=== PATIENT | male | born 1950 | race Caucasian/White ===

== ENCOUNTER 2022-06-23 06:16 | Inpatient (IN) ==
[2022-06-23] MEDS ORDERED: CeFAZolin Syr 3,000MG/30 ML 3,000 MG/30 ML SYRINGE IVPB ONE (06:35)
[2022-06-23] MEDS ORDERED: *HR* FentaNYL (PF) 100 MCG/2 ML VIAL ONE ×2 (06:42→16:21)
[2022-06-23] MEDS ORDERED: *HR* Propofol 200 MG/20 ML VIAL IVP ONE (06:43)
[2022-06-23] MEDS ORDERED: *HR* Succinylcholine 200 MG/10 ML VIAL IVP ONE ×2 (06:44→16:17)
[2022-06-23] MEDS ORDERED: Ondansetron 4 MG/2 ML VIAL ONE ×2 (06:44→16:36)
[2022-06-23] MEDS ORDERED: Lidocaine -MPF 2% 5 ML VIAL ONE ×2 (06:44→16:21)
[2022-06-23] MEDS ORDERED: Ringers Solution, Lactated 1,000 ML IVC SCH (06:45)
[2022-06-23] MEDS ORDERED: *HR* Phenylephrine 10 MG/ML VIAL ONE (06:50)
[2022-06-23] MEDS ORDERED: Protamine Sulfate 50 MG/5 ML VIAL IVP ONE (07:01)
[2022-06-23] MEDS ORDERED: Iopamidol - 300 50 ML VIAL ONE (07:02)
[2022-06-23] MEDS ORDERED: Heparin 1,000 UNITS/500 mL 2,000 ML ONE (07:02)
[2022-06-23] MEDS ORDERED: Iopamidol - 300 100 ML INFUS..BTL ONE (07:02)
[2022-06-23] MEDS ORDERED: Famotidine 20 MG/2 ML VIAL IVP ONE (07:14)
[2022-06-23] MEDS ORDERED: Acetaminophen IV 1,000 MG/100 ML BAG IVPB ONE (07:14)
[2022-06-23] MEDS ORDERED: Ketorolac 30 MG/ML VIAL IVP PRN (07:14)
[2022-06-23] MEDS ORDERED: *HR* OxyCODONE Immed Rel 5 MG TABLET PO PRN ×3 (07:14→19:09)
[2022-06-23] MEDS ORDERED: *HR* Labetalol 20 MG/4 ML SYRINGE IVP PRN ×3 (07:14→19:09)
[2022-06-23] MEDS ORDERED: *HR* HYDROmorphone 2 MG TABLET PO PRN (07:14)
[2022-06-23] MEDS ORDERED: *HR* HYDROmorphone (PF) 1 MG/ML SYRINGE IVP PRN (07:14)
[2022-06-23] MEDS ORDERED: Heparin 1,000 UNITS/500 mL 0 ML ONE (07:30)
[2022-06-23] MEDS ORDERED: ceFAZolin 1,000 MG, Sodium Chloride IRRigation 1,000 ML IR ONE (07:45)
[2022-06-23] MEDS ORDERED: EPHEDrine 50 MG/ML VIAL ONE ×3 (08:19→16:29)
[2022-06-23] MEDS ORDERED: *HR* Rocuronium Bromide 50 MG/5 ML VIAL ONE ×2 (09:12→16:17)
[2022-06-23] MEDS ORDERED: *HR* Heparin 5,000 UNIT/ML VIAL ONE ×2 (09:48→09:56)
[2022-06-23] MEDS ORDERED: Sugammadex Sodium 200 MG/2 ML VIAL IV ONE (10:51)
[2022-06-23] MEDS ORDERED: *HR* HYDROMORPHONE 2 MG/ML VIAL ONE (11:40)
[2022-06-23] MEDS ORDERED: Acetaminophen 325 MG TABLET PO PRN ×2 (15:01→19:09)
[2022-06-23] MEDS ORDERED: Ondansetron 4 MG/2 ML VIAL IVP PRN ×2 (15:01→19:09)
[2022-06-23] MEDS ORDERED: 0.9 % Sodium Chloride 1,000 ML IVC SCH ×2 (15:01→19:09)
[2022-06-23] MEDS ORDERED: Naloxone 0.4 MG/ML INJ IVP PRN ×2 (15:01→19:09)
[2022-06-23] MEDS ORDERED: *HR* HYDROcodone/Acet 5/325 mg TABLET PO PRN ×2 (15:01→19:09)
[2022-06-23] MEDS ORDERED: EPINEPHrine 1 MG/ML VIAL ONE (15:51)
[2022-06-23] MEDS ORDERED: *HR* Vasopressin 20 UNIT/ML VIAL ONE (15:51)
[2022-06-23] MEDS ORDERED: Albumin Human 5% 25.0 GM/500 ML IV.SOLN ONE (15:53)
[2022-06-23] MEDS ORDERED: ceFAZolin 3,000 MG in 0.9 % Sodium Chloride 100 ML IVPB SCH (16:00)
[2022-06-23] MEDS ORDERED: Heparin 1,000 UNITS/500 mL 1,000 ML ONE (16:08)
[2022-06-23] MEDS ORDERED: *HR* Etomidate 40 MG/20 ML VIAL IVP ONE (16:16)
[2022-06-23 16:34] LABS: ABG Base Excess -5 mEq/L (-2 to 3); ABG Chloride 109 mEq/L (98-107); ABG Glucose 152 mg/dL (60-95); ABG HCO3 22 mEq/L (21-27); ABG Ionized Calcium 1.05 mmol/L (1.15-1.35); ABG Oxygen Saturation 100 % (95-98); ABG PCO2 49 mmHg (35-45); ABG PH 7.26 pH Units (7.32-7.45); ABG PO2 288 mmHg (85-104); ABG TCO2 23 mEq/L (20-26)
[2022-06-24] MEDS ORDERED: ceFAZolin 3,000 MG in 0.9 % Sodium Chloride 100 ML IVPB SCH
[2022-06-24] MEDS: ceFAZolin 3,000 MG in 0.9 % Sodium Chloride 100 ML IVPB SCH ×2 (03:30→11:58)
[2022-06-24 04:30] LABS: Basophils % 0.1 %
[2022-06-24 04:32] LABS: Immature Granulocytes % 0.3 % (0-4)
[2022-06-24 04:40] LABS: Hemoglobin 12.4 g/dL (12.9-16.9); Mean Platelet Volume 11.5 fL (9.4-12.4); Red Cell Distribution Width 14.4 % (11.5-14.5)
[2022-06-24 04:41] LABS: Hematocrit 36.5 % (37.5-50.1); Immature Platelets 10.8 % (1.1-6.1); Lymphocytes % 8.6 %; Mean Corpuscular Hemoglobin 30.6 pg (28.0-33.3); Mean Corpuscular Volume 90.1 fL (83.0-100.0); Monocytes # 0.8 K/mcL (0.0-1.3); Monocytes % 7.4 %; Neutrophils # 9.3 K/mcL (1.6-8.9); Platelet Count 116 K/mcL (140-400); Red Blood Count 4.05 M/mcL (4.19-5.50); Segmented Neutrophils % 83.6 %; White Blood Count 11.1 K/mcL (4.3-11.1)
[2022-06-24 04:48] LABS: BUN/Creatinine Ratio 14 (6-26); Blood Urea Nitrogen 14 mg/dL (8-23); Calcium 7.9 mg/dL (8.6-10.3); Carbon Dioxide 23 mEq/L (23-29); Chloride 107 mEq/L (98-107); Glucose 126 mg/dL (70-105); Osmolality,Calculated 288 (280-300); Potassium 4.1 mEq/L (3.5-5.1); Sodium 138 mEq/L (136-145); eGFR For African Americans > 60 (> 60); eGFR For Non-African Americans > 60 (> 60)
[2022-06-24] MEDS ORDERED: Aspirin 81 MG TAB.CHEW PO SCH ×2 (09:00)
[2022-06-24] MEDS ORDERED: allopurinoL 100 MG TABLET PO SCH ×2 (09:00)
[2022-06-24 12:16] VITALS: TEMP 98.2
[2022-06-24 16:28] VITALS: BP 132/69
[2022-06-24 16:36] VITALS: PULSE 80; O2SAT 97
== END 2022-06-24 18:25 | disposition home or self-care (01) | DRG 269 ==
LOC: SAMDAY 06:16 → 2NNU 07:27
PROVIDERS: ADMIT Surgery Vascular Surgery; ATTEND Surgery Vascular Surgery